=== PATIENT | female | born 1990 | race Caucasian/White ===

== ENCOUNTER 2019-11-14 13:04 | Emergency (ER) | payer OTHER, BC, MEDICAID ==
[2019-11-14 13:34] VITALS: BP 110/85; PULSE 107
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
== END 2019-11-14 14:05 | disposition home or self-care (01) ==
LOC: JD.ED 13:04
DX: O9A.211 Injury, poisoning and certain other consequences of external causes complicating pregnancy, first trimester (principal); S39.012A Strain of muscle, fascia and tendon of lower back, initial encounter; S33.5XXA Sprain of ligaments of lumbar spine, initial encounter; V59.49XA Driver of pick-up truck or van injured in collision with other motor vehicles in traffic accident, initial encounter; Z3A.09 9 weeks gestation of pregnancy
CPT/HCPCS: 99282; 99283

== ENCOUNTER 2021-01-31 22:35 | Emergency (ER) | payer BC, MEDICAID, OTHER ==
[2021-01-31 23:15] VITALS: BP 140/80; PULSE 110
--- NOTE | 2021-02-01 01:05 | EDM.PDOC ---
ED HPI GENERAL MEDICAL PROBLEM - General Chief Complaint: Respiratory Problem Stated Complaint: SOB/WEAK Time Seen by Provider: 02/01/21 00:28 - History of Present Illness INITIAL COMMENTS - FREE TEXT/NARRATIVE: Patient arrived ED via private vehicle Onset of current symptoms was about 3 days ago Endorses fatigue, sore throat, myalgias, cough, shortness of breath, anorexia Denies alteration of taste or smell Denies vomiting or diarrhea Dyspnea is largely related to cough induced with breathing Denies prabhjot chest pain or leg pain Fever was noted upon ED arrival Her 6-year-old daughter ended isolation for COVID-19 01/31/2021 Patient is concerned about spreading her illness to her 7-month-old child who is breast-feeding Patient did not receive COVID-19 vaccination Generalized Pain Score (Numeric/FACES): 8 - Related Data Allergies Allergy/AdvReac Type Severity Reaction Status Date / Time No Known Allergies Allergy Verified 01/31/21 23:15 Home Meds: Home Meds Albuterol Sulfate [Albuterol Sulfate HFA] 2 puff INH Q4H PRN #1 inhaler 02/01/21 [Rx] Benzonatate 200 mg PO TID PRN #8 capsule 02/01/21 [Rx] Past Medical History - Past Health History Medical/Surgical History: Denies Medical/Surgical History HEENT History: Reports: Impaired Vision, Other (See Below) Other HEENT History: 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 Cardiovascular History: Reports: None Respiratory History: Reports: None Gastrointestinal History: Reports: None Genitourinary History: Reports: None MINISTER OF RELIGION History: Reports: , Other (See Below) Other MINISTER OF RELIGION History: subchorionic hemmorrhage during one of her past pregnancies, had that child 2 months early, Musculoskeletal History: Reports: None Neurological History: Reports: Migraines, Other (See Below) Other Neuro History: most migraines are while , but occasionally get when not Psychiatric History: Reports: Depression, Other (See Below) Other Psychiatric History: post depression when 19 years old. Endocrine/Metabolic History: Reports: None Hematologic History: Reports: None Immunologic History: Reports: None Oncologic (Cancer) History: Reports: None Dermatologic History: Reports: Eczema - Infectious Disease History Infectious Disease History: Reports: Chicken Pox - Past Surgical History Head Surgeries/Procedures: Reports: None HEENT Surgical History: Reports: Other (See Below) Other HEENT Surgeries/Procedures: benign cyst from behind left ear (2008). Cardiovascular Surgical History: Reports: None Respiratory Surgical History: Reports: None GI Surgical History: Reports: None Neurological Surgical History: Reports: None Musculoskeletal Surgical History: Reports: None Dermatological Surgical History: Reports: None Social & Family History - Family History Family Medical History: No Pertinent Family History - Tobacco Use Tobacco Use Status *Q: Never Tobacco User Second Hand Smoke Exposure: No - Caffeine Use Caffeine Use: Reports: Energy Drinks, Soda Caffeine Use Comment: get one a day, but barely drink any of it. - Recreational Drug Use Recreational Drug Use: No - Living Situation & Occupation Living situation: Reports: Occupation: Unemployed ED ROS GENERAL - Review of Systems Review Of Systems: See Below Free Text/Narrative/Comment: Constitutional - fever; malaise/fatigue; anorexia Eyes - no eye pain; no visual disturbance ENT - no rhinorrhea; no congestion; no epistaxis; sore throat Cardiovascular - no chest pain Respiratory - shortness of breath; cough Gastrointestinal - no abdominal pain; no nausea; no vomiting; no diarrhea Genitourinary - no dysuria Musculoskeletal - myalgia; no extremity injury Neurological - no headache; no speech disturbance; no weakness ED EXAM, GENERAL - Physical Exam Exam: See Below Free Text/Narrative:: Constitutional - awake; alert; mild pain and general distress Head - no facial swelling or weakness Eyes - extra ocular motion intact; conjunctiva normal ENT - no nasal deformity; no epistaxis; normal phonation; mucus membranes moist; Neck - no swelling Respiratory - normal respiratory effort; no crackles or wheezing; no stridor; intermittent tight/dry cough Cardiovascular - regular rhythm; normal rate; S1; S2; grade 1/6 systolic murmur GI/Abdomen - normal bowel sounds; soft; no tenderness; no rebound; no guarding; no mass Musculoskeletal - grossly normal strength and motion; no swelling or deformity Skin - warm; dry Neurologic - normal speech; no weakness; gait intact Psychiatric - normal mood and affect; memory and attention normal Course - Vital Signs Text/Narrative:: . Considered etiologies included: Viral syndrome, COVID-19, pneumonia Symptoms and examination were discussed Investigations were initiated COVID-19 test was positive Radiography was unremarkable Results were discussed Patient did not meet criteria for consideration of monoclonal antibody therapy Symptomatic treatment was reviewed Self-isolation in accordance with CDC guidelines for COVID-19 was reviewed Patient was felt to be stable for outpatient follow-up Return precautions were provided Last Recorded V/S: Last Vital Signs Temp 38.4 C H 01/31/21 23:12 Pulse 110 H 01/31/21 23:12 Resp 20 01/31/21 23:12 BP 140/80 01/31/21 23:12 Pulse Ox 98 01/31/21 23:12 - Orders/Labs/Meds Labs: Laboratory Tests 02/01/21 Range/Units 00:20 Influenza Type A RNA Negative (NEGATIVE) Influenza Type B RNA Negative (NEGATIVE) SARS-CoV-2 RNA (DARIUS) Positive H (NEGATIVE) - Radiology Interpretation Free Text/Narrative:: XR chest, AP portable, interpreted by repairer typewriter: LUISITO Departure - Departure Time of Disposition: 02:15 Disposition: Home, Self-Care 01 Clinical Impression: COVID-19 virus infection - Discharge Information *PRESCRIPTION DRUG MONITORING PROGRAM REVIEWED*: Not Applicable *COPY OF PRESCRIPTION DRUG MONITORING REPORT IN PATIENT [place]ED[place]: Not Applicable Prescriptions: Albuterol Sulfate [Albuterol Sulfate HFA] 2 puff INH Q4H PRN #1 inhaler PRN Reason: Cough or shortness of breath Benzonatate 200 mg PO TID PRN #8 capsule PRN Reason: Cough Instructions: COVID-19: What to Do If You Are Sick- CDC (07/10/2020) Referrals: PCP,None [Primary Care Provider] - Forms: ED Department Discharge Additional Instructions: Your COVID-19 test was positive Self-isolation is recommended in accordance with CDC guidelines for COVID-19 Isolation can be discontinued after: - no fever for 24 hours, and - symptoms improving, and - at least 10 days have passed since symptoms began Return if condition worsens May resume general activity and regular diet as tolerated Continue usual medications May use BENZONATATE and ALBUTEROL medications as prescribed, as needed for cough Follow-up with primary care provider is recommended in 5 to 7 days Sepsis Event Note (ED) - Evaluation Sepsis Screening Result: No Definite Risk
[2021-02-01 01:22] LABS: CORONAVIRUS COVID-19 NAA POSITIVE (NEGATIVE)
--- NOTE | 2021-02-01 07:26 | CR ---
Chest: Frontal view of the chest was obtained. Comparison: No prior chest imaging is available. Heart size and mediastinum are normal. Questionable density within the right lung base is noted. Lungs otherwise are clear. Bony structures are unremarkable. Impression: 1. Difficult to exclude a mild right lower lobe pneumonia. 2. Frontal chest x-ray is otherwise unremarkable. Diagnostic code #3
== END 2021-02-01 02:27 | disposition home or self-care (01) ==
LOC: JD.ED 22:35
DX: U07.1 COVID-19 (principal)
CPT/HCPCS: 0240U; 71045; 99283

== ENCOUNTER 2021-09-27 20:41 | Emergency (ER) | payer OTHER ==
[2021-09-27 20:49] VITALS: BP 123/83; PULSE 89
[2021-09-27] MEDS: Sodium Chloride 0.9% 10 ML Syringe FLUSH PRN ×2 (21:08→21:41)
[2021-09-27] MEDS ORDERED: Ondansetron 4 MG/2 ML SDV IVPUSH ONE (21:25)
[2021-09-27] MEDS ORDERED: Sodium Chloride 0.9% 1,000 ML IV STA (21:25)
[2021-09-27 21:32] LABS: ESTIMATED GFR > 60 mL/min (>60)
== END 2021-09-27 23:00 | disposition home or self-care (01) ==
LOC: JD.ED 20:41
DX: O26.891 Other specified pregnancy related conditions, first trimester (principal); K52.9 Noninfective gastroenteritis and colitis, unspecified; Z3A.09 9 weeks gestation of pregnancy; Z79.899 Other long term (current) drug therapy
CPT/HCPCS: 36415; 80053; 81001; 85025; 86140; 96361; 96374; 99284; J2405; J3490; J7030; 99283

== ENCOUNTER 2022-05-25 12:35 | Emergency (ER) | payer MEDICAID ==
[2022-05-25 12:49] VITALS: BP 110/64; PULSE 80
[2022-05-25] MEDS ORDERED: Ondansetron 4 MG Tab.DIS PO ONE (13:28)
== END 2022-05-25 13:49 | disposition home or self-care (01) ==
LOC: JD.ED 12:35
DX: O91.23 Nonpurulent mastitis associated with lactation (principal)
CPT/HCPCS: 99283; A9270

== ENCOUNTER 2022-08-29 13:10 | Emergency (ER) | payer MEDICAID ==
[2022-08-29] MEDS ORDERED: Sodium Chloride 0.9% 10 ML Syringe FLUSH PRN (13:27)
[2022-08-29] MEDS ORDERED: Sodium Chloride 0.9% 1,000 ML IV ONE (13:27)
[2022-08-29] MEDS ORDERED: Ondansetron 4 MG/2 ML SDV IVPUSH ONE (13:27)
[2022-08-29 14:13] LABS: BASOPHILS ABSOLUTE AUTO 0.03 K/mm3 (0.01-0.08); BASOPHILS PERCENT AUTO 0.2 % (0.1-1.2); EOSINOPHILS ABSOLUTE AUTO 0.12 K/mm3 (0.04-0.36); HEMATOCRIT 45.3 % (34.1-44.9); HEMOGLOBIN 14.9 gm/dl (11.2-15.7); IMMATURE GRAN ABSOLUTE AUTO 0.02 K/mm3 (0.00-0.10); IMMATURE GRAN PERCENT AUTO 0.2 % (<=1.0); LYMPHOCYTES ABSOLUTE AUTO 1.26 K/mm3 (1.18-3.74); LYMPHOCYTES PERCENT AUTO 10.1 % (19.3-51.7); MEAN CORPUSCULAR HEMOGLOBIN 26.6 pg (25.6-32.2); MEAN CORPUSCULAR HGB CONC 32.9 g/dl (32.2-35.5); MEAN CORPUSCULAR VOLUME 80.9 fl (79.4-94.8); MEAN PLATELET VOLUME 10.7 fl (9.4-12.3); MONOCYTES ABSOLUTE AUTO 0.95 K/mm3 (0.24-0.36); MONOCYTES PERCENT AUTO 7.6 % (4.7-12.5); NEUTROPHILS ABSOLUTE AUTO 10.13 K/mm3 (1.56-6.13); NEUTROPHILS PERCENT AUTO 80.9 % (34.0-71.1); PLATELET COUNT,PLT 347 K/mm3 (182-369); WHITE BLOOD CELL COUNT,WBC 12.51 K/mm3 (3.98-10.04)
[2022-08-29 14:34] LABS: ALANINE AMINOTRANSFERASE,ALT 43 U/L (14-59); ALBUMIN 4.5 g/dl (3.4-5.0); ALKALINE PHOSPHATASE 109 U/L (46-116); ANION GAP 14.6 (5-15); ASPARTATE AMNIOTRANSFERASE,AST 27 U/L (15-37); BILIRUBIN TOTAL 0.9 mg/dL (0.2-1.0); BLOOD UREA NITROGEN,BUN 17 mg/dL (7-18); BUN/CREATININE RATIO 24.3 (14-18); C-REACTIVE PROTEIN <0.2 mg/dL (<1.0); CALCIUM 9.6 mg/dL (8.5-10.1); CARBON DIOXIDE,CO2 26 mEq/L (21-32); CHLORIDE,CL 102 mEq/L (98-107); CREATININE 0.7 mg/dL (0.55-1.02); EST CRCL DRUG DOSING (CG) 104.78 mL/min; ESTIMATED GFR 119 mL/min (>60); GLUCOSE RANDOM 99 mg/dL (70-99); LIPASE 98 U/L (73-393); MAGNESIUM 1.7 mg/dL (1.8-2.4); POTASSIUM,K 3.6 mEq/L (3.5-5.1); SODIUM,NA 139 mEq/L (136-145)
[2022-08-29] MEDS ORDERED: Metoclopramide 10 MG/2 ML SDV IVPUSH ONE (15:07)
[2022-08-29] MEDS ORDERED: diphenhydrAMINE 50 MG/ML SDV IVPUSH ONE (15:07)
[2022-08-29 16:41] VITALS: BP 111/72; PULSE 95
== END 2022-08-29 16:40 | disposition home or self-care (01) ==
LOC: JD.ED 13:10
DX: O99.893 Other specified diseases and conditions complicating puerperium (principal); R11.2 Nausea with vomiting, unspecified
CPT/HCPCS: 36415; 80053; 83690; 83735; 85025; 86140; 96361; 96374; 96375; 99284; J1200; J2405; J2765; J7030; 99283

== ENCOUNTER 2024-03-26 23:04 | Emergency (ER) | payer SELFPAY ==
[2024-03-27] MEDS: Lidocaine 1% 10 ML MDV INJECT ONE (00:19)
[2024-03-27 00:22] VITALS: BP 130/75; PULSE 79
== END 2024-03-27 00:21 | disposition home or self-care (01) ==
LOC: JD.ED 23:04
DX: S01.01XA Laceration without foreign body of scalp, initial encounter (principal); W22.8XXA Striking against or struck by other objects, initial encounter
CPT/HCPCS: 12001; 99282; J3490

== ENCOUNTER 2024-12-31 00:19 | Emergency (ER) | payer SELFPAY ==
[2024-12-31 00:25] VITALS: BP 136/98; PULSE 80
[2024-12-31] MEDS: Acetaminophen/HYDROcodone 325-5 MG Tab PO ONE (00:51)
== END 2024-12-31 01:01 | disposition home or self-care (01) ==
LOC: JD.ED 00:19
DX: M26.9 Dentofacial anomaly, unspecified (principal); Z79.899 Other long term (current) drug therapy
CPT/HCPCS: 99283; A9270